=== PATIENT | female | born 1975 | race American Indian/Alaskan Native ===

== ENCOUNTER 2020-07-05 10:58 | Emergency (ER) | payer MEDICAID ==
[2020-07-05] MEDS ORDERED: SODIUM CHLORIDE 0.9% 1000 ML 1,000 ML IV ONE (11:05)
[2020-07-05] MEDS ORDERED: ONDANSETRON 4 MG/2 ML INJ IV ONE (11:05)
[2020-07-05] MEDS ORDERED: MORPHINE 4 MG/1 ML INJ IV ONE (11:06)
[2020-07-05] MEDS ORDERED: PANTOPRAZOLE 40 MG INJ IV ONE (11:06)
[2020-07-05 12:08] LABS: Basophils # (Auto) 0.1 K/mm3 (0.0-0.1); Basophils % (Auto) 0.5 % (0.0-1.8); Eosinophils % (Auto) 0.1 % (0.0-4.3); Hematocrit 38.9 % (30.3-42.9); Lymphocytes # (Auto) 1.3 K/mm3 (1.2-5.4); Lymphocytes % (Auto) 8.7 % (13.4-35.0); Mean Corpuscular HGB Conc 34 % (30-34); Mean Corpuscular Volume 77 fl (79-97); Monocytes # (Auto) 0.4 K/mm3 (0.0-0.8); Monocytes % (Auto) 2.8 % (0.0-7.3); Platelet Count 228 K/mm3 (140-440); Red Blood Count 5.03 M/mm3 (3.65-5.03); Red Cell Distribution Width 14.2 % (13.2-15.2)
[2020-07-05 12:10] LABS: Alanine Aminotransferase 14 units/L (7-56); Albumin 3.4 g/dL (3.9-5); BUN/Creatinine Ratio 11; Blood Urea Nitrogen 10 mg/dL (7-17); Calcium 8.8 mg/dL (8.4-10.2); Hemolysis Index 7
[2020-07-05 12:13] LABS: Bilirubin,Direct < 0.2 mg/dL (0-0.2)
--- NOTE | 2020-07-05 14:33 | Emergency Department Report ---
ED Abdominal Pain HPI - General Chief Complaint: Abdominal Pain Stated Complaint: N/V PUI?: No Time Seen by Provider: 07/05/20 11:05 Source: patient, EMS Mode of arrival: Stretcher Limitations: No Limitations - History of Present Illness Initial Comments: CC: vomiting, diarrhea, abdominal pain HPI: This is a 44 yo female with hx of DM, HTN who presents with abdominal pain nausea vomiting diarrhea since this morning. Patient prepared fish for dinner last night. She has diffuse abdominal pain. Copious amount of vomiting d iarrhea. No sick contacts. She denies fever. MD Complaint: abdominal pain -: Gradual Location: diffuse Severity: moderate Severity scale (0 -10): 5 Quality: cramping, aching Consistency: constant Improves With: nothing Worsens With: nothing Associated Symptoms: nausea, vomiting, diarrhea - Related Data Home Medications Medication Instructions Recorded Confirmed Last Taken Lisinopril/Hydrochlorothiazide 1 tab PO QDAY 08/23/15 10/17/15 08/23/15 [Zestoretic 10-12.5 mg] Albuterol Mdi (or & Nicu Only) 8.5 gram IH PRN PRN 10/17/15 10/17/15 Unknown [ProAir HFA Inhaler] Gabapentin 300 mg PO TID 10/17/15 10/17/15 Unknown Previous Rx's Medication Instructions Recorded Last Taken Type Nitrofurantoin [place]/M-Cryst 100 mg PO Q12HR 10 Days capsule 03/02/20 Unknown Rx [Macrobid CAP] Ondansetron [Zofran Odt] 4 mg PO Q8HR PRN #10 tab.rapdis 03/02/20 Unknown Rx Promethazine [Phenergan] 25 mg PO Q6HR PRN #10 tab 07/05/20 Unknown Rx Allergies Allergy/AdvReac Type Severity Reaction Status Date / Time Penicillins Allergy Unknown Verified 12/27/14 00:16 ibuprofen AdvReac Itching Verified 10/17/15 02:34 ED Review of Systems ROS: Stated complaint: N/V Other details as noted in HPI Comment: All other systems reviewed and negative Constitutional: denies: fever, malaise Cardiovascular: denies: chest pain Gastrointestinal: abdominal pain, nausea, vomiting, diarrhea Neurological: denies: headache, weakness ED Past Medical Hx - Past Medical History Previous Medical History?: Yes Hx Hypertension: Yes Hx Diabetes: Yes Hx Asthma: Yes Additional medical history: Hypercholesterolemia, neuropathy, - Surgical History Past Surgical History?: Yes Hx Cholecystectomy: Yes Additional Surgical History: tubal ligation - Social History Smoking Status: Never Smoker Substance Use Type: None - Medications Home Medications: Home Medications Medication Instructions Recorded Confirmed Last Taken Type Lisinopril/Hydrochlorothiazide 1 tab PO QDAY 08/23/15 10/17/15 08/23/15 History [Zestoretic 10-12.5 mg] Albuterol Mdi (or & Nicu Only) 8.5 gram IH PRN PRN 10/17/15 10/17/15 Unknown Hi story [ProAir HFA Inhaler] Gabapentin 300 mg PO TID 10/17/15 10/17/15 Unknown History Nitrofurantoin [place]/M-Cryst 100 mg PO Q12HR 10 Days capsule 03/02/20 Unknown Rx [Macrobid CAP] Ondansetron [Zofran Odt] 4 mg PO Q8HR PRN #10 tab.rapdis 03/02/20 Unknown Rx Promethazine [Phenergan] 25 mg PO Q6HR PRN #10 tab 07/05/20 Unknown Rx ED Physical Exam - General Limitations: No Limitations General appearance: alert, in no apparent distress - Head Head exam: Present: atraumatic, normocephalic - Eye Eye exam: Present: normal appearance - ENT ENT exam: Present: mucous membranes moist - Neck Neck exam: Present: normal inspection, full ROM - Respiratory Respiratory exam: Present: normal lung sounds bilaterally. Absent: respiratory distress, wheezes, rales, rhonchi - Cardiovascular Cardiovascular Exam: Present: normal rhythm, tachycardia, normal heart sounds. Absent: systolic murmur, diastolic murmur, rubs, gallop - GI/Abdominal GI/Abdominal exam: Present: soft, tenderness, guarding, normal bowel sounds, ot her (RUQ LLQ tenderness). Absent: distended, rebound - Extremities Exam Extremities exam: Present: normal inspection - Neurological Exam Neurological exam: Present: alert, oriented X3 - Psychiatric Psychiatric exam: Present: normal affect, normal mood - Skin Skin exam: Present: warm, dry, intact, normal color. Absent: rash ED Course Vital Signs 07/05/20 07/05/20 07/05/20 10:58 11:16 11:30 Temperature 97.5 F L Pulse Rate 114 H 114 H Respiratory 9 L 18 Rate Blood Pressure 221/138 O2 Sat by Pulse Oximetry 07/05/20 07/05/20 07/05/20 11:34 11:45 12:00 Temperature Pulse Rate Respiratory 18 Rate Blood Pressure 212/138 189/110 190/117 O2 Sat by Pulse Oximetry 07/05/20 07/05/20 07/05/20 12:15 12:30 12:45 Temperature Pulse Rate Respiratory Rate Blood Pressure 191/120 202/119 201/127 O2 Sat by Pulse Oximetry 07/05/20 07/05/20 07/05/20 13:00 13:15 14:54 Temperature Pulse Rate 101 H 104 H Respiratory 19 19 18 Rate Blood Pressure 198/110 196/121 O2 Sat by Pulse 95 95 99 Oximetry ED Medical Decision Making - Lab Data Result diagrams: 07/05/20 11:18 07/05/20 11:18 - Radiology Data Radiology results: report reviewed CT ABDOMEN AND PELVIS WITH IV CONTRAST INDICATION: MAIN. Right upper quadrant abdominal pain with leukocytosis. COMPARISON: None available. TECHNIQUE: Axial CT images were obtained through the abdomen and pelvis after 100 mL IV contrast. All CT scans at this location are performed using CT dose reduction for ALARA by means of automated exposure control. FINDINGS -- ABDOMEN: Lung Bases: No acute abnormality. Liver: Normal. Gallbladder: Removed. Bile Ducts: Normal. Pancreas: Normal. Spleen: Normal. Adrenals: Normal. Right Kidney and Proximal Ureter: Normal. Left Kidney and Proximal Ureter: Normal. Stomach and Bowel: Normal. Lymph Nodes: No significant adenopathy. Aorta: No significant abnormality. IVC: Normal. Additional Findings: None. FINDINGS -- PELVIS: Urinary Bladder and Distal Ureters: Normal. Reproductive Organs: No acute abnormality. Appendix: Normal. Bowel: A few sigmoid diverticula. Free Fluid: None. Lymph Nodes: Several borderline enlarged periaortic nodes are present, the largest measuring about 8 mm in short axis.. Additional Findings: Small fat-containing periumbilical hernia.. Skeletal System: No acute abnormality. IMPRESSION: Borderline adenopathy of the upper periaortic retroperitoneal lymph node chain, as outlined above. This is of uncertain clinical significance. There has been prior cholecystectomy. A few colonic diverticula are present without diverticulitis. - Medical Decision Making Ms. Em is a 44-year-old female history of hypertension, diabetes mellitus, GERD who presents with abdominal pain vomiting diarrhea since this morning. Work-up revealed leukocytosis 14,000. CT abdomen pelvis without acute inflammatory process with exception of enlarged retroperitoneal lymph nodes. Patient received IV fluid therapy, IV analgesia, IV anti-emetic. I have prescribed promethazine. Recommended clear liquid diet. repeat BP 170/101 Critical care attestation.: If time is entered above; I have spent that time in minutes in the direct care of this critically ill patient, excluding procedure time. ED Disposition Clinical Impression: Abdominal pain, Vomiting and diarrhea Disposition: - TO HOME OR SELFCARE Is pt being admited?: No Does the pt Need Aspirin: No Condition: Stable Instructions: Abdominal Pain (ED) Prescriptions: Promethazine [Phenergan] 25 mg PO Q6HR PRN #10 tab PRN Reason: Nausea Referrals: PRIMARY CARE, [Referring] - 3-5 Days
--- NOTE | 2020-07-05 15:41 | Cat Scan Report ---
CT ABDOMEN AND PELVIS WITH IV CONTRAST INDICATION: MAIN. Right upper quadrant abdominal pain with leukocytosis. COMPARISON: None available. TECHNIQUE: Axial CT images were obtained through the abdomen and pelvis after 100 mL IV contrast. All CT scans a t this location are performed using CT dose reduction for ALARA by means of automated exposure contro l. FINDINGS -- ABDOMEN: Lung Bases: No acute abnormality. Liver: Normal. Gallbladder: Removed. Bile Ducts: Normal. Pancreas: Normal. Spleen: Normal. Adrenals: Normal. Right Kidney and Proximal Ureter: Normal. Left Kidney and Proximal Ureter: Normal. Stomach and Bowel: Normal. Lymph Nodes: No significant adenopathy. Aorta: No significant abnormality. IVC: Normal. Additional Findings: None. FINDINGS -- PELVIS: Urinary Bladder and Distal Ureters: Normal. Reproductive Organs: No acute abnormality. Appendix: Normal. Bowel: A few sigmoid diverticula. Free Fluid: None. Lymph Nodes: Several borderline enlarged periaortic nodes are present, the largest measuring about 8 mm in short axis.. Additional Findings: Small fat-containing periumbilical hernia.. Skeletal System: No acute abnormality. IMPRESSION: Borderline adenopathy of the upper periaortic retroperitoneal lymph node chain, as outlined above. Th is is of uncertain clinical significance. There has been prior cholecystectomy. A few colonic diverti cula are present without diverticulitis. Signer Name: Brian Reyes MD Signed: 07/05/2020 3:36 PM Workstation Name: [id number]
[2020-07-05 16:30] VITALS: BP 159/101
== END 2020-07-05 16:37 | disposition home or self-care (01) ==
LOC: ED 10:58
DX: R19.7 Diarrhea, unspecified (principal); R10.9 Unspecified abdominal pain; R11.10 Vomiting, unspecified; I10 Essential (primary) hypertension; E11.9 Type 2 diabetes mellitus without complications; E78.00 Pure hypercholesterolemia, unspecified; J45.909 Unspecified asthma, uncomplicated; Z90.49 Acquired absence of other specified parts of digestive tract; Z88.0 Allergy status to penicillin; Z88.6 Allergy status to analgesic agent; Z79.899 Other long term (current) drug therapy; Z98.51 Tubal ligation status
CPT/HCPCS: 36415; 74177; 80048; 80076; 83690; 85025; 96361; 96374; 96375; 99285; C9113; J2270; J2405; J7030; Q9967

== ENCOUNTER 2020-07-20 12:58 | Observation (INO) | payer MEDICAID ==
[2020-07-20] MEDS ORDERED: FAMOTIDINE 20 MG/2 ML INJ IV ONE (13:41)
[2020-07-20] MEDS ORDERED: diphenhydrAMINE 50 MG/ML VIAL IV ONE (13:41)
[2020-07-20] MEDS ORDERED: methylPREDNISolone Sod Succinate 125 MG/2 ML INJ IV ONE (13:41)
[2020-07-20 14:19] LABS: Basophils # (Auto) 0.1 K/mm3 (0.0-0.1); Basophils % (Auto) 1.3 % (0.0-1.8); Eosinophils # (Auto) 0.2 K/mm3 (0.0-0.4); Eosinophils % (Auto) 2.3 % (0.0-4.3); Hematocrit 38.6 % (30.3-42.9); Hemoglobin 12.9 gm/dl (10.1-14.3); Lymphocytes # (Auto) 1.9 K/mm3 (1.2-5.4); Mean Corpuscular HGB Conc 33 % (30-34); Mean Corpuscular Volume 77 fl (79-97); Monocytes # (Auto) 0.7 K/mm3 (0.0-0.8); Monocytes % (Auto) 7.3 % (0.0-7.3); Platelet Count 212 K/mm3 (140-440); Red Blood Count 5.03 M/mm3 (3.65-5.03); Red Cell Distribution Width 13.7 % (13.2-15.2)
--- NOTE | 2020-07-20 14:24 | Emergency Department Report ---
HPI - General Chief Complaint: Dizziness Time Seen by Provider: 07/20/20 13:25 - HPI HPI: Room 23 The patient is a 44-year-old female present with a chief complaint of swelling to the face. Patient states last night her nose eyes and face felt irritated. The patient states she began to feel her face swelling. This morning she noticed the swelling was significant. Patient states she had difficulty breathing out of her nose and had to breathe out of her mouth secondary to the swelling. Patient denies any preceding trauma or fever. Patient takes Zestoretic. Patient denies throat or tongue swelling ED Past Medical Hx - Past Medical History Hx Hypertension: Yes Hx Diabetes: Yes Hx Asthma: Yes Additional medical history: Hypercholesterolemia, neuropathy, - Surgical History Hx Cholecystectomy: Yes Additional Surgical History: tubal ligation - Family History Family history: no significant - Social History Smoking Status: Former Smoker (None x19 years) Substance Use Type: None (Denies illicit drug use) - Medications Home Medications: Home Medications Medication Instructions Recorded Confirmed Last Taken Type Lisinopril/Hydrochlorothiazide 1 tab PO QDAY 08/23/15 10/17/15 08/23/15 History [Zestoretic 10-12.5 mg] Albuterol Mdi (or & Nicu Only) 8.5 gram IH PRN PRN 10/17/15 10/17/15 Unknown History [ProAir HFA Inhaler] Gabapentin 300 mg PO TID 10/17/15 10/17/15 Unknown History Nitrofurantoin [place]/M-Cryst 100 mg PO Q12HR 10 Days capsule 03/02/20 Unknown Rx [Macrobid CAP] Ondansetron [Zofran Odt] 4 mg PO Q8HR PRN #10 tab.rapdis 03/02/20 Unknown Rx Promethazine [Phenergan] 25 mg PO Q6HR PRN #10 tab 07/05/20 Unknown Rx ED Review of Systems ROS: Stated complaint: FACIAL SWELLING Other details as noted in HPI Constitutional: no symptoms reported Respiratory: no symptoms reported Endocrine: no symptoms reported Skin: other (Swelling) Physical Exam - Physical Exam Vital Signs: Vital Signs 07/20/20 13:19 Pulse Rate 109 H Respiratory 14 Rate Blood Pressure 186/120 [Right] O2 Sat by Pulse 100 Oximetry Physical Exam: GENERAL: The patient is well-developed well-nourished female sitting on stretcher not appearing to be in acute distress. [] HEENT: Normocephalic. Atraumatic. Extraocular motions are intact. Swelling noted to the upper lip. There is an irregularly shaped circular lesion overlying the maxilla with an erythematous base. No active drainage seen. No fluctuance palpated. Oropharynx clear. NECK: Supple. Trachea midline. There is no stridor CHEST/LUNGS: Clear to auscultation. There is no respiratory distress noted. HEART/CARDIOVASCULAR: Regular. There is no tachycardia. There is no gallop rub or murmur. SKIN: See HEENT above. There is no diaphoresis. NEURO: The patient is awake, alert, and oriented. The patient is cooperative. The patient has normal speech MUSCULOSKELETAL: There is no evidence of acute injury. ED Course Vital Signs 07/20/20 13:19 Pulse Rate 109 H Respiratory 14 Rate Blood Pressure 186/120 [Right] O2 Sat by Pulse 100 Oximetry ED Medical Decision Making - Lab Data Result diagrams: 07/20/20 13:47 07/20/20 13:47 Laboratory Tests 07/20/20 07/20/20 13:47 13:47 WBC 10.0 RBC 5.03 Hgb 12.9 Hct 38.6 MCV 77 L MCH 26 L MCHC 33 RDW 13.7 Plt Count 212 Lymph % (Auto) 19.0 [place] % (Auto) 7.3 Eos % (Auto) 2.3 Baso % (Auto) 1.3 Lymph # (Auto) 1.9 [place] # (Auto) 0.7 Eos # (Auto) 0.2 Baso # (Auto) 0.1 Seg Neutrophils % 70.1 H Seg Neutrophils # 7.0 Sodium 133 L Potassium 4.7 Chloride 98.9 Carbon Dioxide 25 Anion Gap 14 BUN 12 Creatinine 1.1 Estimated GFR > 60 BUN/Creatinine Ratio 11 Glucose 276 H Calcium 9.0 - Differential Diagnosis Angioedema, cellulitis Critical care attestation.: If time is entered above; I have spent that time in minutes in the direct care of this critically ill patient, excluding procedure time. ED Disposition Clinical Impression: Angioedema of lips Disposition: OP ADMIT IP TO THIS HOSP Is pt being admited?: Yes Does the pt Need Aspirin: Yes Condition: Stable Time of Disposition: 16:20 (Hospitalist notified (Dr. Navarro))
[2020-07-20 14:29] LABS: BUN/Creatinine Ratio 11; Blood Urea Nitrogen 12 mg/dL (7-17); Hemolysis Index 14
[2020-07-20] MEDS ORDERED: MUPIROCIN 2% OINT 22 GM TP ONE (17:00)
--- NOTE | 2020-07-20 17:08 | History and Physical Report ---
History of Present Illness Chief complaint: My face is swollen History of present illness: 44 YO Female with HTN, DM, HLD, Asthma, Obesity Hypoventilation Syndrome, Metabolic Syndrome presents to ED for evaluation. Patient states that she had experienced runny nose and irritated eyes overnight with persistent symptoms this morning. Patient also states that she awoke from sleep and found to have swelling to her face and mouth and her upper lip. The patient also experienced difficulty breathing. EMS was notified and upon arrival the patient was found to be in distress and subsequently transported to [facility] for further care and evaluation of the aforementioned symptoms. Patient seen and evaluated in the emergency department. Lab and imaging studies reviewed. Patient found to have clinical symptoms consistent with angioedema. Patient placed in observation status and admitted to medical floor for further care due to increased risk of decompensation. Patient treated with IV steroid therapy with mild improvement in symptoms. Patient found to have swelling to the oral oropharynx, with mild drooling, and difficulty speaking in complete sentences. Patient symptoms improved with IV steroid therapy and supportive care. Patient denies fever, chills, chest pain, palpitation, productive cough, skin rash, recent ill contacts, or known exposure COVID-19. No prior admission for review. All medication listed at time of admission has been reconciled. Patient has positive gag reflex and is able to protect her airway at time of my evaluation. Past History Past Medical History: diabetes, hypertension, hyperlipidemia, other (See HPI) Past Surgical History: Other (Tubal ligation) Social history: single. denies: smoking, alcohol abuse, prescription drug abuse Family history: diabetes, hypertension Medications and Allergies Allergies Allergy/AdvReac Type Severity Reaction Status Date / Time lisinopril Allergy Angioedema Verified 07/20/20 13:22 Penicillins Allergy Unknown Verified 12/27/14 00:16 ibuprofen AdvReac Itching Verified 10/17/15 02:34 Home Medications Medication Instructions Recorded Confirmed Last Taken Type Albuterol Mdi (or & Nicu Only) 8.5 gram IH PRN PRN 10/17/15 07/20/20 Unknown History [ProAir HFA Inhaler] Gabapentin 300 mg PO TID 10/17/15 07/20/20 Unknown History DULoxetine [Cymbalta] 60 mg PO BID 07/20/20 07/20/20 Unknown History Insulin Glargine [Lantus VIAL] 45 units SUB-Q TID 07/20/20 07/20/20 Unknown History Liraglutide [Victoza 2-Cristiano] 1.8 mg SQ QHS 07/20/20 07/20/20 Unknown History Metoprolol [Lopressor] 25 mg PO BID 07/20/20 07/20/20 Unknown History Review of Systems Constitutional: other (Facial swelling, drooling,), no weight loss, no weight gain, no fever, no chills Ears, nose, mouth and throat: sore throat, swelling in mouth, other (Lip swelling,), no ear pain, no ear discharge, no tinnitis, no decreased hearing, no nasal congestion Breasts: no change in shape, no swelling, no mass Cardiovascular: no chest pain, no orthopnea, no palpitations, no rapid/irregular heart beat, no edema Respiratory: no cough, no cough with sputum, no excessive sputum, no hemoptysis, no shortness of breath Gastrointestinal: no nausea, no vomiting, no diarrhea, no constipation, no change in bowel habits Genitourinary Female: no pelvic pain, no flank pain, no dysuria, no urinary frequency, no urgency Rectal: no pain, no incontinence, no bleeding Musculoskeletal: no neck stiffness, no neck pain, no shooting arm pain, no arm numbness/tingling, no low back pain Integumentary: no rash, no pruritis, no redness, no sores, no wounds Neurological: no paralysis, no weakness, no parathesias, no numbness, no tingling, no seizures Psychiatric: no anxiety, no memory loss, no change in sleep habits, no sleep disturbances, no insomnia, no hypersomnia Endocrine: no cold intolerance, no heat intolerance, no polyphagia, no excessive thirst, no polyuria, no nocturia Hematologic/Lymphatic: no easy bruising, no easy bleeding, no lymphadenopathy Allergic/Immunologic: angioedema, no urticaria, no allergic rhinitis Exam - Constitutional Vitals: Temp Pulse Resp BP Pulse Ox 111 H 14 166/94 99 07/20/20 14:44 07/20/20 14:44 07/20/20 14:44 07/20/20 14:44 General appearance: Present: mild distress - EENT Eyes: Present: PERRL ENT: hearing intact, clear oral mucosa, other (Facial edema, lipedema, or pharyngeal edema) - Neck Neck: Present: supple, normal ROM - Respiratory Respiratory effort: normal Respiratory: bilateral: CTA - Cardiovascular Heart Sounds: Present: S1 & S2. Absent: rub, click - Extremities Extremities: pulses symmetrical, No edema Peripheral Pulses: within normal limits - Abdominal General gastrointestinal: Present: soft, non-tender, non-distended, normal bowel sounds Female genitourinary: Present: normal - Integumentary Integumentary: Present: clear, warm, dry - Musculoskeletal Musculoskeletal: gait normal, strength equal bilaterally - Psychiatric Psychiatric: appropriate mood/affect, intact judgment & insight - Neurologic Neurologic: CNII-XII intact, moves all extremities Results - Labs CBC & Chem 7: 07/20/20 13:47 07/20/20 13:47 Labs: Abnormal lab results 07/20/20 07/20/20 Range/Units 13:47 13:47 MCV 77 L (79-97) fl MCH 26 L (28-32) pg Seg Neutrophils % 70.1 H (40.0-70.0) % Sodium 133 L (137-145) mmol/L Glucose 276 H (65-100) mg/dL Assessment and Plan - Patient Problems (1) Angioedema of lips Current Visit: Yes Status: Acute Qualifiers: Encounter type: initial encounter Qualified Code(s): T78.3XXA - Angio neurotic edema, initial encounter Plan to address problem: IV steroid therapy, supportive care, discontinue TEMI inhibitor. (2) Obesity hypoventilation syndrome Current Visit: Yes Status: Acute Plan to address problem: Balanced diet, increase physical activity at discharge, outpatient bariatric surgery follow-up. (3) Hypertension Current Visit: Yes Status: Acute Qualifiers: Hypertension type: essential hypertension Qualified Code(s): I10 - Essent ial (primary) hypertension Plan to address problem: Monitor blood pressure every shift, continue medical management (4) Hyperlipidemia Current Visit: Yes Status: Acute Qualifiers: Hyperlipidemia type: mixed hyperlipidemia Qualified Code(s): E78.2 - Mixed hyperlipidemia Plan to address problem: Low-cholesterol diet, statin therapy as clinically indicated. (5) Diabetes mellitus Current Visit: Yes Status: Acute Plan to address problem: Consistent carbohydrate diet, sliding scale insulin therapy, Accu-Chek, hypoglycemia protocol (6) DVT prophylaxis Current Visit: Yes Status: Acute Plan to address problem: SCD to bilateral lower extremities while in bed, patient is ambulatory.
[2020-07-20] MEDS ORDERED: ONDANSETRON 4 MG/2 ML INJ IV PRN (17:10)
[2020-07-20] MEDS ORDERED: PROMETHAZINE 25 MG TAB PO PRN (17:12)
[2020-07-20] MEDS ORDERED: ONDANSETRON 4 MG ODT TAB PO PRN (17:12)
[2020-07-20] MEDS: ACETAMINOPHEN 325 MG TAB PO PRN (22:49)
[2020-07-20] MEDS: GABAPENTIN 300 MG CAP PO SCH (22:51)
[2020-07-20] MEDS: INSULIN LISPRO 100 UNIT/ML VIAL 3 mL SUB-Q SCH (22:52)
[2020-07-20] MEDS: methylPREDNISolone Sod Succinate 40 MG/1 ML INJ IV SCH (22:53)
[2020-07-21] MEDS: methylPREDNISolone Sod Succinate 40 MG/1 ML INJ IV SCH ×2 (05:32→14:01)
[2020-07-21 06:09] LABS: Calcium 8.9 mg/dL (8.4-10.2)
[2020-07-21] MEDS: INSULIN LISPRO 100 UNIT/ML VIAL 3 mL SUB-Q SCH ×4 (07:30→21:50)
[2020-07-21] MEDS: GABAPENTIN 300 MG CAP PO SCH ×3 (08:22→21:45)
[2020-07-21] MEDS: ACETAMINOPHEN 325 MG TAB PO PRN ×2 (08:48→17:38)
[2020-07-21] MEDS: DULoxetine 30 MG CAP PO SCH ×2 (09:49→21:43)
[2020-07-21] MEDS ORDERED: NON-FORMULARY EACH (Lisinopril/Hydrochlorothiazide [Zestoretic 10-12.5 Mg] 1 TAB) PO SCH (10:00)
[2020-07-21] MEDS ORDERED: INSULIN GLARGINE 100 UNITS/ML SUB-Q SCH ×2 (12:00→17:20)
[2020-07-21] MEDS: SUCRALFATE 1 GM TAB PO SCH ×3 (12:05→21:56)
[2020-07-21] MEDS: METOPROLOL TARTRATE 25 MG TAB PO SCH ×2 (12:09→21:44)
--- NOTE | 2020-07-21 14:18 | Progress Note ---
Assessment and Plan Assessment and plan: --Angioedema of lips Current Visit: Yes Status: Acute Plan to address problem: IV steroid therapy, supportive care, discontinue TEMI inhibitor. Pepcid, antihistamines Symptoms significantly improved --Morbid obesity; BMI 44.1 Current Visit: Yes Status: Acute Plan to address problem: Patient needs weight reduction when medically stable Patient would benefit by bariatric surgical evaluation As outpatient for weight reduction program when medically stable -- myalgia bilateral LE; supportive care, pain medications, muscle relaxers Bilateral lower extremity venous Doppler to rule out DVT -- Hypertension emergency Current Visit: Yes Status: Acute Plan to address problem: We will add multiple antihypertensives Currently patient is on multiple antihypertensives metoprolol ,labetalol PRN,hydralazine And hydrochlorothiazide -- Hyperlipidemia Current Visit: Yes Status: Acute Plan to address problem: Low-cholesterol diet, statin therapy as clinically indicated. --Type II diabetes mellitus Current Visit: Yes Status: Acute Plan to address problem: Consistent carbohydrate diet, sliding scale insulin therapy, --DVT prophylaxis Current Visit: Yes Status: Acute Plan to address problem: SCD to bilateral lower extremities while in bed, patient is ambulatory. We will closely monitor the patient and adjust management as needed Plan of care reviewed with the patient and her nurse History Interval history: I have seen and examined the patient at the bedside this morning Patient's chart and medications reviewed Admitted with the lisinopril angioedema Swelling of the lip and throat significantly improved Patient is breathing well, no stridor However complains of generalized body pain Lower extremity pain No history of trauma Vital signs reviewed Hospitalist Physical - Constitutional Vitals: Temp Pulse Resp BP Pulse Ox 98.8 F 103 H 22 203/111 97 07/21/20 13:58 07/21/20 13:58 07/21/20 13:58 07/21/20 13:58 07/21/20 08:39 General appearance: Present: mild distress, well-nourished, obese (Morbidly obese) - EENT Eyes: Present: PERRL, EOM intact - Neck Neck: Present: supple, normal ROM - Respiratory Respiratory effort: normal Respiratory: bilateral: diminished, negative: rales - Cardiovascular Rhythm: regular Heart Sounds: Present: S1 & S2 - Extremities Extremities: no ischemia, No edema - Abdominal General gastrointestinal: soft, non-tender, non-distended, normal bowel sounds - Integumentary Integumentary: Present: clear, warm - Psychiatric Psychiatric: appropriate mood/affect, cooperative - Neurologic Neurologic: CNII-XII intact, moves all extremities Results - Labs CBC & Chem 7: 07/20/20 13:47 07/21/20 04:50 Labs: Laboratory Last Values WBC 10.0 K/mm3 (4.5-11.0) 07/20/20 13:47 RBC 5.03 M/mm3 (3.65-5.03) 07/20/20 13:47 Hgb 12.9 gm/dl (10.1-14.3) 07/20/20 13:47 Hct 38.6 % (30.3-42.9) 07/20/20 13:47 MCV 77 fl (79-97) L 07/20/20 13:47 MCH 26 pg (28-32) L 07/20/20 13:47 MCHC 33 % (30-34) 07/20/20 13:47 RDW 13.7 % (13.2-15.2) 07/20/20 13:47 Plt Count 212 K/mm3 (140-440) 07/20/20 13:47 Lymph % (Auto) 19.0 % (13.4-35.0) 07/20/20 13:47 [place] % (Auto) 7.3 % (0.0-7.3) 07/20/20 13:47 Eos % (Auto) 2.3 % (0.0-4.3) 07/20/20 13:47 Baso % (Auto) 1.3 % (0.0-1.8) 07/20/20 13:47 Lymph # (Auto) 1.9 K/mm3 (1.2-5.4) 07/20/20 13:47 [place] # (Auto) 0.7 K/mm3 (0.0-0.8) 07/20/20 13:47 Eos # (Auto) 0.2 K/mm3 (0.0-0.4) 07/20/20 13:47 Baso # (Auto) 0.1 K/mm3 (0.0-0.1) 07/20/20 13:47 Seg Neutrophils % 70.1 % (40.0-70.0) H 07/20/20 13:47 Seg Neutrophils # 7.0 K/mm3 (1.8-7.7) 07/20/20 13:47 Sodium 133 mmol/L (137-145) L 07/21/20 04:50 Potassium 4.8 mmol/L (3.6-5.0) 07/21/20 04:50 Chloride 96.0 mmol/L (98-107) L 07/21/20 04:50 Carbon Dioxide 24 mmol/L (22-30) 07/21/20 04:50 Anion Gap 18 mmol/L 07/21/20 04:50 BUN 18 mg/dL (7-17) H 07/21/20 04:50 Creatinine 1.3 mg/dL (0.6-1.2) H 07/21/20 04:50 Estimated GFR 54 ml/min 07/21/20 04:50 BUN/Creatinine Ratio 14 % 07/21/20 04:50 Glucose 563 mg/dL (65-100) H* 07/21/20 04:50 POC Glucose 381 (70-105) H 07/21/20 12:07 Calcium 8.9 mg/dL (8.4-10.2) 07/21/20 04:50 Dillon/IV: Voiding Method Toilet Active Medications - Current Medications Current Medications: Generic Name Dose Route Start Last Admin Trade Name Freq PRN Reason Stop Dose Admin Acetaminophen 650 mg 07/20/20 17:10 07/21/20 08:48 Tylenol PO 650 mg Q4H PRN Administration Pain MILD(1-3)/Fever >100.5/ENGEL Duloxetine HCl 60 mg 07/21/20 10:00 07/21/20 09:49 Cymbalta PO 60 mg BID YEN Administration Gabapentin 300 mg 07/20/20 20:00 07/21/20 14:01 Gabapentin PO 300 mg TID YEN Administration Hydralazine HCl 50 mg 07/21/20 22:00 Apresoline PO Q8HR YEN Hydrochlorothiazide 12.5 mg 07/22/20 10:00 Hctz PO QDAY YEN Insulin Glargine 20 units 07/21/20 12:00 07/21/20 12:05 Lantus SUB-Q 20 units BID YEN Administration Insulin Human Lispro 0 unit 07/20/20 22:45 07/21/20 12:34 Humalog SUB-Q 8 unit ACHS YEN Administration Protocol Ketorolac Tromethamine 15 mg 07/21/20 14:14 Toradol IV 07/26/20 14:13 Q6H PRN Pain, Mild (1-3) Labetalol HCl 10 mg 07/21/20 14:12 Labetalol IV Q4H PRN Hypertension Methylprednisolone Sodium Succinate 40 mg 07/20/20 22:00 07/21/20 14:01 Solu-Medrol IV 40 mg Q8HR YEN Administration Metoprolol Tartrate 25 mg 07/21/20 11:30 07/21/20 12:09 Metoprolol PO 25 mg BID YEN Administration Mirtazapine 45 mg 07/21/20 22:00 Remeron Solutab PO QHS YEN Miscellaneous Medication 1.8 mg 07/21/20 22:00 Liraglutide [Victoza 2-Cristiano] SQ QHS YEN Ondansetron HCl 4 mg 07/20/20 17:10 Zofran IV Q8H PRN Nausea And Vomiting Sodium Chloride 10 ml 07/20/20 22:00 07/21/20 09:50 Sodium Chloride Flush Syringe 10 Ml IV 10 ml BID YEN Administration Sodium Chloride 10 ml 07/20/20 17:10 Sodium Chloride Flush Syringe 10 Ml IV PRN PRN LINE FLUSH Sucralfate 1 gm 07/21/20 11:30 07/21/20 12:05 Carafate PO 1 gm ACHS YEN Administration
[2020-07-21] MEDS: KETOROLAC 30 MG/1 ML INJ IV PRN ×2 (15:23→21:43)
--- NOTE | 2020-07-21 17:32 | Vascular Lab Report ---
DUPLEX DOPPLER LOWER EXTREMITY VEINS, BILATERAL INDICATION / CLINICAL INFORMATION: Bryan lower extremity swelling/ pain/evaluate DVT. TECHNIQUE: Duplex doppler imaging was performed through the veins of both lower extremities using venous david richard and other maneuvers. COMPARISON: None available. FINDINGS: RIGHT COMMON FEMORAL VEIN: Negative. RIGHT FEMORAL VEIN: Negative. RIGHT POPLITEAL VEIN: Negative. RIGHT CALF VEINS: Negative. LEFT COMMON FEMORAL VEIN: Negative. LEFT FEMORAL VEIN: Negative. LEFT POPLITEAL VEIN: Negative. LEFT CALF VEINS: Negative. ADDITIONAL FINDINGS: None. IMPRESSION: 1. No sonographic evidence for DVT in either lower extremity. Signer Name: Macario Palacios MD Signed: 07/21/2020 5:27 PM Workstation Name: [id number]
[2020-07-21] MEDS: hydrALAZINE 25 MG TAB PO SCH (21:44)
[2020-07-21] MEDS: INSULIN GLARGINE 100 UNITS/ML SUB-Q SCH (21:48)
[2020-07-21] MEDS ORDERED: MIRTAZAPINE 30 MG TAB PO SCH (22:00)
[2020-07-21] MEDS ORDERED: MIRTAZAPINE 15 MG SOLUTAB PO SCH (22:00)
[2020-07-21] MEDS ORDERED: MIRTAZAPINE 45 MG PO SCH (22:00)
[2020-07-21] MEDS ORDERED: LIRAGLUTIDE 1.8 MG SQ SCH (22:00)
[2020-07-21] MEDS ORDERED: DULoxetine 30 MG CAP PO SCH (22:00)
[2020-07-22] MEDS: SUCRALFATE 1 GM TAB PO SCH ×2 (07:30→12:05)
[2020-07-22] MEDS: INSULIN LISPRO 100 UNIT/ML VIAL 3 mL SUB-Q SCH ×2 (07:30→11:30)
[2020-07-22] MEDS: GABAPENTIN 300 MG CAP PO SCH ×2 (08:00→13:43)
[2020-07-22] MEDS: INSULIN GLARGINE 100 UNITS/ML SUB-Q SCH ×2 (08:00→13:43)
[2020-07-22] MEDS ORDERED: hydroCHLOROthiazide 12.5 MG CAP PO SCH (10:00)
[2020-07-22] MEDS ORDERED: predniSONE 20 MG TAB PO SCH (10:00)
[2020-07-22] MEDS: DULoxetine 30 MG CAP PO SCH (10:04)
[2020-07-22] MEDS: METOPROLOL TARTRATE 25 MG TAB PO SCH (10:05)
[2020-07-22] MEDS: ACETAMINOPHEN 325 MG TAB PO PRN (10:22)
[2020-07-22 13:02] VITALS: BP 157/110
[2020-07-22] MEDS: hydrALAZINE 25 MG TAB PO SCH (13:41)
--- NOTE | 2020-07-22 14:12 | Discharge Summary ---
Providers - Providers Date of Admission: 07/20/20 17:10 Date of discharge: 07/22/20 Attending physician: VERONICA LIZAMA Primary care physician: KAI ARROYO DO Hospitalization Reason for admission: Angioedema due to lisinopril allergy Condition: Stable Pertinent studies: Bilateral lower extremity venous Doppler; negative for PE Hospital course: 44 YO Female with HTN, DM, HLD, Asthma, Obesity Hypoventilation Syndrome, Metabolic Syndrome was admitted through emergency room with acute shortness of breath and swelling of upper lip face and mouth due to angioedema secondary to lisinopril use. Patient was evaluated in the emergency room, patient did not have any upper respiratory compromise or stridor, received oxygen steroids antihistamines admitted for close observation. Patient symptoms slowly but gradually improved Morbidly obese complaints of bilateral lower extremity pain, lower extremity venous Doppler negative for DVT, Patient symptoms resolved today patient is comfortable no new complaints vital signs stable,Physical examination is unremarkable. Stable for discharge. Strongly advised that as she is allergic to lisinopril ,not to use TEMI inhibitor lisinopril and TEMI inhibitor related medications.Patient verbalized understanding Stable at discharge. : Discharge diagnosis: --Angioedema due to lisinopil. Current Visit: Yes Status: Acute Plan to address problem: Do not use lisinopril or ACEI related medications --Morbid obesity; BMI 44.1 Current Visit: Yes Status: Acute Plan to address problem: Advised weight reduction -- myalgia bilateral LE; Bilateral lower extremity venous Doppler neg DVT -- Hypertension emergency Current Visit: Yes Status: Acute Plan to address problem: Resolved, well controlled blood pressures -- Hyperlipidemia Current Visit: Yes Status: Acute Plan to address problem: Low-cholesterol diet, statin --Type II diabetes mellitus Current Visit: Yes Status: Acute Plan to address problem: Uncontrolled , patient is on very high doses of long-acting insulin at home Advised to continue the same dose and follow-up with PMD consistent carbohydrate diet, Strongly advised to comply with medications and diet --DVT prophylaxis Current Visit: Yes Status: Acute Plan to address problem: SCD Stable at discharge Disposition: DC-01 TO HOME OR SELFCARE Time spent for discharge: 32 min Core Measure Documentation - Palliative Care Palliative Care/ Comfort Measures: Not Applicable - Core Measures Any of the following diagnoses?: none Exam - Constitutional Vitals: Temp Pulse Resp BP Pulse Ox 98.0 F 87 22 157/110 98 07/22/20 11:25 07/22/20 11:25 07/22/20 11:25 07/22/20 11:25 07/22/20 11:25 General appearance: Present: no acute distress, well-nourished - EENT Eyes: Present: PERRL, EOM intact - Neck Neck: Present: supple, normal ROM - Respiratory Respiratory effort: normal Respiratory: bilateral: diminished, negative: rales, rhonchi, wheezing - Cardiovascular Rhythm: regular Heart Sounds: Present: S1 & S2 - Extremities Extremities: no ischemia, pulses intact - Abdominal General gastrointestinal: Present: soft, non-tender, non-distended - Integumentary Integumentary: Present: clear, warm - Musculoskeletal Musculoskeletal: strength equal bilaterally - Psychiatric Psychiatric: appropriate mood/affect, cooperative - Neurologic Neurologic: moves all extremities Plan Activity: no restrictions Diet: diabetic Additional Instructions: If you have worsening symptoms contact MD or go to emergency room. Exercise as tolerated and weight reduction when you are medically stable Follow up with: KAI ARROYO DO [Primary Care Provider] - 3-5 Days Prescriptions: amLODIPine 10 mg PO DAILY #30 tab Hydralazine HCl 50 mg PO Q8H #90 tablet hydroCHLOROthiazide [Hydrochlorothiazide] 2 tab PO DAILY #60 capsule
== END 2020-07-22 18:29 | disposition home or self-care (01) ==
LOC: ED 12:58 → 3A 17:10
PROVIDERS: ADMIT Internal Medicine; ATTEND Internal Medicine
DX: T78.3XXA Angioneurotic edema, initial encounter (principal); I10 Essential (primary) hypertension; E78.2 Mixed hyperlipidemia; M79.7 Fibromyalgia; E66.2 Morbid (severe) obesity with alveolar hypoventilation; E11.40 Type 2 diabetes mellitus with diabetic neuropathy, unspecified; I16.1 Hypertensive emergency; E78.00 Pure hypercholesterolemia, unspecified; J45.909 Unspecified asthma, uncomplicated; Z87.891 Personal history of nicotine dependence; Z98.51 Tubal ligation status; Z79.4 Long term (current) use of insulin; Z79.899 Other long term (current) drug therapy; Z88.0 Allergy status to penicillin; Z88.6 Allergy status to analgesic agent; Z88.8 Allergy status to other drugs, medicaments and biological substances; Z68.41 Body mass index [BMI] 40.0-44.9, adult; X58.XXXA Exposure to other specified factors, initial encounter; Y93.89 Activity, other specified; Y92.89 Other specified places as the place of occurrence of the external cause
CPT/HCPCS: 36415; 80048; 82962; 85025; 93970; 96372; 96374; 96375; 96376; 99284; G0378; J1200; J1885; J2920; J2930; J7512; J1815